=== PATIENT | female | born 1960 | race Caucasian/White ===

== ENCOUNTER 2021-09-15 11:18 | Inpatient (IN) | payer OTHER ==
[2021-09-15 12:03] LABS: #Lymphocytes 1.1 thou/uL (1.20-3.40); #Monocytes 0.4 thou/uL (0.11-0.59); #Neutrophils 8.2 thou/uL (1.40-6.50); %Basophils 0.3 % (0.0-1.0); %Eosinophils 0.4 % (0.0-10.0); %Lymphocytes 11.5 % (21.0-51.0); %Neutrophils 83.8 % (42.0-75.0); Hemoglobin 15.4 g/dL (12.0-16.0); Mean Corpuscular HGB CONC 32.6 g/dL (32.0-36.0); Mean Corpuscular Hemoglobin 29.8 pg (27.0-31.0); Mean Corpuscular Volume 91.4 fL (78.0-98.0); Mean Platelet Volume 8.3 fL (7.4-10.4); Platelet Count 174 thou/uL (130-400); RBC Distribution Width 12.3 % (11.5-14.5); Red Blood Cell (RBC) Count 5.15 mill/uL (4.20-5.40); White Blood Cell (WBC) Count 9.8 thou/uL (4.8-10.8)
[2021-09-15 12:30] LABS: Bilirubin Negative (Negative); Blood, Urine Negative (Negative); Clarity Clear (Clear); Glucose, Urine (Dipstick) Normal (Negative); Ketone, Urine Trace mg/dL (Negative); Leukocyte 75 Leu/uL (Negative); Nitrite Negative (Negative); Protein, Urine (Dipstick) Negative (Neg-Trace); RBC/HPF 0-3 HPF (0-3); Specific Gravity, Urine 1.003 (1.002-1.036); Squamous Epithelial 0-3 HPF (0-3); Urobilinogen Normal mg/dL (Less than 2); WBC/HPF 0-3 HPF (0-3); pH, Urine 5.5 (5.0-9.0)
[2021-09-15 12:33] LABS: Bacteria/HPF Rare-Few HPF (None Seen)
[2021-09-15 12:41] LABS: ALT (SGPT) 20 U/L (8-55); AST (SGOT) 29 U/L (5-34); Albumin 4.3 g/dL (3.4-4.8); Alkaline Phosphatase 82 U/L (40-110); Anion Gap 16 mmol/L (10-20); BUN (Urea Nitrogen) 10 mg/dL (9.8-20.1); Bilirubin, Total 0.9 mg/dL (0.2-1.2); Calc. Creatinine Clearance 0 mL/min (70-130); Calcium 9.5 mg/dL (7.8-10.44); Carbon Dioxide 18 mmol/L (23-31); Chloride 106 mmol/L (98-107); Estimated GFR 91; Globulin 3.1 g/dL (2.4-3.5); Glucose 85 mg/dL (80-115); Potassium 4.2 mmol/L (3.5-5.1); Protein, Total 7.4 g/dL (5.8-8.1); Sodium 136 mmol/L (136-145)
[2021-09-15 14:06] LABS: CKMB 4.2 ng/mL (0-6.6)
[2021-09-15 14:22] LABS: INR-International Normal Ratio 0.9; PTT 24.1 sec (22.9-36.1); Prothrombin Time 12.4 sec (12.0-14.7)
[2021-09-15] MEDS ORDERED: Labetalol HCl 100 MG/20 ML VIAL SLOW IVP PRN (17:28)
[2021-09-15 20:12] VITALS: BMI 24.7
[2021-09-15 20:43] LABS: Troponin I 0.092 ng/mL (< 0.028)
[2021-09-16 05:11] LABS: #Basophils 0.1 thou/uL (0.0-0.2); #Eosinphils 0.2 thou/uL (0.0-0.7); #Lymphocytes 2.1 thou/uL (1.20-3.40); #Monocytes 0.6 thou/uL (0.11-0.59); #Neutrophils 3.4 thou/uL (1.40-6.50); %Basophils 1.2 % (0.0-1.0); %Eosinophils 2.6 % (0.0-10.0); %Lymphocytes 33.4 % (21.0-51.0); %Monocytes 8.9 % (0.0-10.0); %Neutrophils 53.9 % (42.0-75.0); Hemoglobin 15.1 g/dL (12.0-16.0); Mean Corpuscular HGB CONC 32.9 g/dL (32.0-36.0); Mean Corpuscular Hemoglobin 29.6 pg (27.0-31.0); Mean Corpuscular Volume 90.2 fL (78.0-98.0); Mean Platelet Volume 8.4 fL (7.4-10.4); Platelet Count 176 thou/uL (130-400); RBC Distribution Width 12.3 % (11.5-14.5); Red Blood Cell (RBC) Count 5.09 mill/uL (4.20-5.40); White Blood Cell (WBC) Count 6.3 thou/uL (4.8-10.8)
[2021-09-16 05:21] LABS: ALT (SGPT) 16 U/L (8-55); AST (SGOT) 22 U/L (5-34); Alkaline Phosphatase 76 U/L (40-110); Anion Gap 14 mmol/L (10-20); BUN (Urea Nitrogen) 12 mg/dL (9.8-20.1); Bilirubin, Total 0.9 mg/dL (0.2-1.2); Calc. Creatinine Clearance 79 mL/min (70-130); Calcium 9.1 mg/dL (7.8-10.44); Carbon Dioxide 24 mmol/L (23-31); Cardiac Risk 3.8 (Less than 4.5); Chloride 106 mmol/L (98-107); Cholesterol 230 mg/dl (< 200 Desired); Estimated GFR 91; Globulin 2.8 g/dL (2.4-3.5); Glucose 86 mg/dL (80-115); HDL Cholesterol 61 mg/dL (>60 Neg Risk); LDL Cholesterol, Calculated 157 mg/dL; Potassium 3.6 mmol/L (3.5-5.1); Protein, Total 6.8 g/dL (5.8-8.1); Sodium 140 mmol/L (136-145); Triglycerides 61 mg/dL (Less than 150)
[2021-09-16] MEDS ORDERED: Carvedilol 6.25 MG TAB PO SCH (08:00)
[2021-09-16] MEDS ORDERED: Furosemide 20 MG TAB PO SCH (09:00)
[2021-09-16] MEDS ORDERED: Lisinopril 20 MG TAB PO SCH (09:00)
[2021-09-16 12:56] VITALS: BP 130/64; TEMP 98.8
[2021-09-16 13:05] LABS: SARS-CoV-2 PCR NAA for Saliva Not Detected (NotDetected)
== END 2021-09-16 16:58 | disposition home or self-care (01) | DRG 306 ==
LOC: ERS 11:18 → 2NO 17:24
PROVIDERS: ADMIT Family Medicine; ATTEND Family Medicine
DX: I35.0 Nonrheumatic aortic (valve) stenosis (principal); I62.00 Nontraumatic subdural hemorrhage, unspecified; K50.90 Crohn's disease, unspecified, without complications; I10 Essential (primary) hypertension; I25.10 Atherosclerotic heart disease of native coronary artery without angina pectoris; Z20.822 Contact with and (suspected) exposure to COVID-19; Z90.49 Acquired absence of other specified parts of digestive tract; Z88.8 Allergy status to other drugs, medicaments and biological substances; Z86.718 Personal history of other venous thrombosis and embolism
CPT/HCPCS: 36415; 70450; 71045; 72125; 80053; 80061; 81003; 81015; 82553; 83880; 84443; 84484; 85025; 85610; 85730; 93005; 93306; U0003; U0005

== ENCOUNTER 2021-10-11 11:33 | Outpatient (CLI) | payer OTHER | END 2021-10-11 11:34 | disposition home or self-care (01) | LOC: CT 11:33 | PROVIDERS: ATTEND Neurological Surgery | DX: S06.5X0A Traumatic subdural hemorrhage without loss of consciousness, initial encounter (principal) | CPT/HCPCS: 70450 ==

== ENCOUNTER 2021-10-20 02:56 | Emergency (ER) | payer SELFPAY ==
[2021-10-20] MEDS ORDERED: Ondansetron PF 4 MG/2 ML Vial ONE (03:11)
[2021-10-20] MEDS ORDERED: NOREPINEPHRINE 8 MG/250 ML-D5W 250 ML ONE (03:16)
[2021-10-20] MEDS ORDERED: Heparin 10,000 UNITS/ 10 ML VIAL ONE (03:24)
[2021-10-20 03:29] LABS: #Basophils 0.1 thou/uL (0.0-0.2); #Eosinphils 0.4 thou/uL (0.0-0.7); #Lymphocytes 5.1 thou/uL (1.20-3.40); #Monocytes 0.8 thou/uL (0.11-0.59); #Neutrophils 4.3 thou/uL (1.40-6.50); %Basophils 0.9 % (0.0-1.0); %Eosinophils 3.6 % (0.0-10.0); %Lymphocytes 47.9 % (21.0-51.0); %Monocytes 7.2 % (0.0-10.0); %Neutrophils 40.5 % (42.0-75.0); Hemoglobin 14.3 g/dL (12.0-16.0); Mean Corpuscular Hemoglobin 30.7 pg (27.0-31.0); Mean Corpuscular Volume 90.1 fL (78.0-98.0); Mean Platelet Volume 9.6 fL (7.4-10.4); Platelet Count 173 thou/uL (130-400); RBC Distribution Width 13.1 % (11.5-14.5); Red Blood Cell (RBC) Count 4.67 mill/uL (4.20-5.40); White Blood Cell (WBC) Count 10.7 thou/uL (4.8-10.8)
[2021-10-20 03:45] LABS: ALT (SGPT) 22 U/L (8-55); AST (SGOT) 40 U/L (5-34); Albumin 3.8 g/dL (3.4-4.8); Alkaline Phosphatase 66 U/L (40-110); BUN (Urea Nitrogen) 10 mg/dL (9.8-20.1); Bilirubin, Total 0.6 mg/dL (0.2-1.2); Calc. Creatinine Clearance 0 mL/min (70-130); Calcium 8.8 mg/dL (7.8-10.44); Carbon Dioxide 18 mmol/L (23-31); Chloride 108 mmol/L (98-107); Estimated GFR 87; Globulin 2.3 g/dL (2.4-3.5); Glucose 148 mg/dL (80-115); Lipase 141 U/L (8-78); Magnesium 2.1 mg/dL (1.6-2.6); Potassium 3.6 mmol/L (3.5-5.1); Protein, Total 6.1 g/dL (5.8-8.1); Sodium 141 mmol/L (136-145)
[2021-10-20] MEDS ORDERED: fentaNYL Citrate/PF 2,000 MCG in Sodium Chloride 0.9% 60 ML IV SCH (03:45)
[2021-10-20 03:46] LABS: CK (CPK) 120 U/L (29-168)
[2021-10-20 03:47] LABS: Anion Gap 19 mmol/L (10-20)
[2021-10-20 04:00] LABS: CKMB 2.9 ng/mL (0-6.6)
[2021-10-20] MEDS ORDERED: EPINEPHrine 1 MG/10 ML Abboject SYRINGE ONE (04:00)
[2021-10-20] MEDS ORDERED: Rocuronium Bromide 10 MG/ML (10ML VIAL) ONE (04:00)
[2021-10-20 04:27] LABS: SARS-CoV-2 NAA Rapid Test Not Detected (NotDetected)
[2021-10-20] MEDS ORDERED: Amiodarone 150 MG/3 ML VIAL ONE (04:53)
== END 2021-10-20 03:48 | disposition short-term general hospital (02) ==
LOC: ERS 02:56
DX: I21.09 ST elevation (STEMI) myocardial infarction involving other coronary artery of anterior wall (principal); R57.0 Cardiogenic shock; Z20.822 Contact with and (suspected) exposure to COVID-19
CPT/HCPCS: 31500; 36416; 51702; 71045; 80053; 82550; 82553; 83690; 83735; 83880; 84484; 85025; 85347; 93005; 94002; 96374; 96375; C1725; C1769; J0171; J0282; J1644; J2405; J3010; J3490; U0002